=== PATIENT | female | born 1970 | race Caucasian/White ===

== ENCOUNTER 2018-03-31 11:41 | Outpatient (REF) | payer OTHER, SELFPAY ==
[2018-03-31 18:32] LABS: HGB 14.3 g/dL (12.0-15.5); Mean Corpuscular Hemoglobin 32.4 pg (27.0-33.0); Mean Corpuscular Volume 95.2 fL (80-95); Mean Platelet Volume 10.2 fL (8.0-11.0); Platelet Count 202 x1000/uL (130-400); RBC 4.41 m/cumm (4.00-5.20); RBC Distribution Width 12.4 % (11.7-14.6); White Blood Cell Count 5.29 k/cumm (4.4-10.8)
== END 2018-03-31 12:01 ==
LOC: LBN 11:41
PROVIDERS: PCP Internal Medicine; Visit Provider Obstetrics & Gynecology
DX: N92.1 Excessive and frequent menstruation with irregular cycle (principal)
CPT/HCPCS: 85027

== ENCOUNTER 2018-09-30 07:52 | Outpatient (REF) | payer OTHER, SELFPAY ==
[2018-09-30 21:02] LABS: ALT 26 U/L (12-78); AST 21 U/L (15-37); Albumin 3.7 g/dL (3.4-5.0); Alkaline Phosphatase 84 U/L (46-116); Anion Gap 10.9 mmol/L (3-11); BUN 9 mg/dL (7-18); Bilirubin, Total 0.4 mg/dL (0.2-1.0); CO2 26.1 mmol/L (21.0-32.0); CREATININE 0.84 mg/dL (0.55-1.02); Calcium 8.5 mg/dL (8.5-10.1); Calculated LDL 171 mg/dL; Chloride 103 mmol/L (98-107); Cholesterol 256 mg/dL (50-200); Glucose 85 mg/dL (70-100); HDL Cholesterol 56 mg/dL (40-60); Potassium 4.2 mmol/L (3.5-5.1); Sodium 140 mmol/L (136-145); Triglyceride 145 mg/dL (30-150)
[2018-09-30 21:15] LABS: Amylase 31 U/L (25-115); Bilirubin, Direct 0.09 mg/dL (0.00-0.20); Lipase 166 U/L (73-393)
[2018-10-02 10:32] LABS: Hepatitis C Ab w Rflx HCV PCR Negative (NEGAT)
[2018-10-02 13:18] LABS: Hep A Total Ab w Rflx IgM Negative (NEGAT)
[2018-10-02 13:54] LABS: HBs Antibody, Quant 191.3 mIU/mL; Hepatitis B Surface Ab Positive
== END 2018-09-30 08:12 ==
LOC: NCHCN 07:52
PROVIDERS: PCP Internal Medicine; Visit Provider Nurse Practitioner Family
DX: E78.5 Hyperlipidemia, unspecified (principal); K80.20 Calculus of gallbladder without cholecystitis without obstruction; K76.0 Fatty (change of) liver, not elsewhere classified; Z11.59 Encounter for screening for other viral diseases
CPT/HCPCS: 80048; 80061; 80076; 83690; 83721; 86706; 86709; 86803; 82150

== ENCOUNTER 2019-08-17 09:04 | Outpatient (REF) | payer OTHER, SELFPAY ==
[2019-08-17 19:20] LABS: Calculated LDL 125 mg/dL (<100); Cholesterol 249 mg/dL (<200); Glucose 92 mg/dL (74-106); HDL Cholesterol 51 mg/dL (40-60); Triglyceride 368 mg/dL (<150)
== END 2019-08-17 09:24 ==
LOC: LBN 09:04
PROVIDERS: PCP Internal Medicine; Visit Provider Advanced Practice Midwife
DX: Z13.1 Encounter for screening for diabetes mellitus (principal); Z13.220 Encounter for screening for lipoid disorders
CPT/HCPCS: 80061; 82947

== ENCOUNTER 2019-11-18 10:29 | Outpatient (REF) | payer SELFPAY ==
[2019-11-21 07:32] LABS: Patient Race White; SARS-CoV-2 RNA Undetected (Undetected); SARS-CoV-2 Specimen Source Nasal
== END 2019-11-18 10:49 ==
LOC: NCHCN 10:29
PROVIDERS: PCP Internal Medicine; Visit Provider Family Medicine
DX: Z20.828 Contact with and (suspected) exposure to other viral communicable diseases (principal)
CPT/HCPCS: U0003

== ENCOUNTER 2019-12-17 16:19 | Outpatient (REF) | payer OTHER, SELFPAY ==
[2019-12-20 09:54] LABS: SARS-CoV-2 RNA Not Detected (NotDetected); SARS-CoV-2 RNA Source Nasal/Nares
== END 2019-12-17 16:39 ==
LOC: NCHCN 16:19
PROVIDERS: Family Medicine; PCP Internal Medicine; Visit Provider Nurse Practitioner Family
DX: Z20.828 Contact with and (suspected) exposure to other viral communicable diseases (principal)
CPT/HCPCS: U0003

== ENCOUNTER 2020-01-10 17:45 | Outpatient (REF) | payer OTHER, SELFPAY ==
[2020-01-13 12:11] LABS: Patient Race White; SARS-CoV-2 RNA Undetected (Undetected); SARS-CoV-2 Specimen Source Nasal
== END 2020-01-10 18:05 ==
LOC: NCHCN 17:45
PROVIDERS: PCP Internal Medicine; Visit Provider Nurse Practitioner Family
DX: Z11.59 Encounter for screening for other viral diseases (principal)
CPT/HCPCS: U0003

== ENCOUNTER 2020-02-09 09:59 | Outpatient (REF) | payer OTHER, SELFPAY ==
[2020-02-10 23:57] LABS: COVID-19 RT-PCR UVMMC Result Negative (Negative)
== END 2020-02-09 10:19 ==
LOC: NCHCN 09:59
PROVIDERS: PCP Internal Medicine; Visit Provider Nurse Practitioner Family
DX: Z03.818 Encounter for observation for suspected exposure to other biological agents ruled out (principal)
CPT/HCPCS: U0003

== ENCOUNTER 2024-08-30 14:04 | Outpatient (REF) | payer MEDICAID, SELFPAY ==
[2024-08-30 20:33] LABS: ALT 19 U/L (14-59); AST 17 U/L (15-37); Albumin 3.8 g/dL (3.4-5.0); Alkaline Phosphatase 65 U/L (46-116); Anion Gap 7.8 mmol/L (3-11); BUN 9 mg/dL (7-18); Bilirubin, Total 0.4 mg/dL (0.2-1.0); CO2 28.2 mmol/L (21.0-32.0); Calcium 9.0 mg/dL (8.5-10.1); Calculated LDL 125 mg/dL (<100); Chloride 102 mmol/L (98-107); Cholesterol 248 mg/dL (<200); Estimated GFR 102.07 (mL/min/1.73m2); Glucose 86 mg/dL (74-106); HDL Cholesterol 66 mg/dL (>or=50); Potassium 4.2 mmol/L (3.5-5.1); Sodium 138 mmol/L (136-145); Total Protein 7.2 g/dL (6.4-8.2); Triglyceride 287 mg/dL (<150)
== END 2024-08-30 14:05 | disposition home or self-care (01) ==
LOC: NCHCN 14:04
PROVIDERS: PCP Internal Medicine; Visit Provider Nurse Practitioner Family
DX: I10 Essential (primary) hypertension (principal)
CPT/HCPCS: 80053; 80061

== ENCOUNTER 2025-01-06 12:32 | Outpatient (REF) | payer MEDICAID, SELFPAY ==
[2025-01-06 19:07] LABS: HCT 34.5 % (36.0-46.0); HGB 11.7 g/dL (11.2-15.7); MCH 33.7 pg (27.0-33.0); MCHC 33.9 % (32.0-36.0); MCV 99 fL (80-95); MPV 9.7 fL (8.0-11.0); Platelet Count 278 10^3/uL (130-400); RBC 3.47 10^6/uL (3.93-5.22); RDW 11.6 % (11.7-14.6); RDW-SD 41.9 fL; WBC 4.63 10^3/uL (4.4-10.8)
[2025-01-06 19:17] LABS: Uric Acid 2.0 mg/dL (3.1-7.8)
[2025-01-06 19:21] LABS: ALT 12 U/L (10-49); AST 20 U/L (<34); Albumin 4.0 g/dL (3.4-5.0); Alkaline Phosphatase 65 U/L (46-116); Anion Gap 7.4 mmol/L (3-11); BUN 7 mg/dL (9-23); Bilirubin, Total 0.20 mg/dL (0.2-1.2); CO2 29.6 mmol/L (20.0-31.0); Calcium 8.9 mg/dL (8.3-10.6); Chloride 103 mmol/L (98-107); Glucose 80 mg/dL (74-106); Potassium 4.2 mmol/L (3.5-5.1); Sodium 140 mmol/L (136-145); Total Protein 6.6 g/dL (5.7-8.2)
== END 2025-01-06 12:33 | disposition home or self-care (01) ==
LOC: NCHCN 12:32
PROVIDERS: PCP Internal Medicine; Visit Provider Nurse Practitioner Family
DX: M10.9 Gout, unspecified (principal)
CPT/HCPCS: 80053; 85027; 84550